=== PATIENT | female | born 1980 | race Two or more races ===

== ENCOUNTER 2017-07-25 14:06 | Emergency (ER) | payer BC ==
[2017-07-25 14:22] VITALS: BP 131/84
--- NOTE | 2017-07-25 15:05 | UC ---
Throat Pain/Nasal Steve HPI - HPI Summary HPI Summary: Patient presents with sinus congestion and feeling of fullness x 1 week. She has tried sudafed last week, and mucinex this week without improvement. She has fullness over the frontal and maxillary sinuses bilaterally worse with palpation. The fullness radiates to the bilateral ears. She denies RUANO or other symptoms. She works in the lab. - History of Current Complaint Chief Complaint: UCGeneralIllness Stated Complaint: SINUS ISSUE Time Seen by Provider: 07/25/17 14:46 Hx Obtained From: Patient Hx Last Menstrual Period: 07/09/17 ?: No Onset/Duration: Sudden Onset Severity: Moderate Pain Intensity: 5 Pain Scale Used: 0-10 Numeric Cough: Other: Associated Signs & Symptoms: Positive: Negative - Epiglottits Risk Factors Epiglottis Risk Factors: Negative - Allergies/Home Medications Allergies/Adverse Reactions: Allergies Allergy/AdvReac Type Severity Reaction Status Date / Time No Known Allergies Allergy Verified 07/25/17 14:22 Home Medications: Home Medications Pseudoephedrine-Guaifenesin [Mucinex D 60-600 mg] 1 tab PO BID PRN 07/25/17 [ History Confirmed 07/25/17] PMH/Surg Hx/FS Hx/Imm Hx Previously Healthy: Yes - Surgical History Surgical History: None - Family History Known Family History: Positive: Unknown - Social History Occupation: Employed Full-time Lives: With Family Alcohol Use: Occasionally Substance Use Type: None Smoking Status (MU): Never Smoked Tobacco Review of Systems Constitutional: Negative Skin: Negative ENT: Sinus Congestion, Sinus Pain/Tenderness Respiratory: Negative Cardiovascular: Negative Motor: Negative Neurovascular: Negative Neurological: Negative Psychological: Negative Is Patient Immunocompromised?: No All Other Systems Reviewed And Are Negative: Yes Physical Exam Triage Information Reviewed: Yes Appearance: Well-Appearing, No Pain Distress, Well-Nourished Vital Signs: Initial Vital Signs Temp 99.4 F 07/25/17 14:17 Pulse 77 07/25/17 14:17 Resp 20 07/25/17 14:17 BP 131/84 07/25/17 14:17 Pulse Ox 96 07/25/17 14:17 Vital Signs Reviewed: Yes Eye Exam: Normal Eyes: Positive: Conjunctiva Clear ENT: Positive: Nasal congestion, Nasal drainage, Other: - frontal and maxillary sinus pressure. Negative: Tonsillar swelling, Tonsillar exudate Dental Exam: Normal Respiratory Exam: Normal Respiratory: Positive: Chest non-tender, Lungs clear Cardiovascular Exam: Normal Musculoskeletal Exam: Normal Musculoskeletal: Positive: Strength Intact Neurological Exam: Normal Psychological Exam: Normal Psychological: Positive: Normal Response To Family Skin Exam: Normal Throat Pain/Nasal Course/Dx - Course Course Of Treatment: Patient evaluated for pressure in the maxillary and frontal sinuses x 2 weeks. She has tenderness and fluid pockets over the maxillary and frontal sinuses on palpation. Given sudafed and augmentin for relief. - Differential Dx/Diagnosis Differential Diagnosis/HQI/PQRI: Pharyngitis, Tonsillitis Provider Diagnoses: Sinusitis Discharge - Discharge Plan Condition: Stable Disposition: HOME Prescriptions: Amoxicillin/Clavulanate TAB* [Augmentin TAB 875*] 875 mg PO BID #14 tab Pseudoephedrine HCl [Sudafed 24 Hour] 240 mg PO DAILY #15 tab Patient Education Materials: Sinusitis (ED), Warm Compress or Soak (ED) Additional Instructions: Follow up with your PCP as needed If you develop worsening symptoms, return to the
== END 2017-07-25 15:07 | disposition home or self-care (01) ==
LOC: UCEAST 14:06
DX: J32.9 Chronic sinusitis, unspecified (principal)
CPT/HCPCS: 99212; G0463

== ENCOUNTER 2017-11-11 13:30 | Emergency (ER) | payer BC ==
[2017-11-11 13:53] VITALS: BP 127/76
--- NOTE | 2017-11-11 15:19 | UC ---
Throat Pain/Nasal Steve HPI - HPI Summary HPI Summary: 2 DAYS OF FEVER TMAX 102, ST, PAIN WITH SWALLOWING, RUANO, FATIGUE, BODY ACHES. NO COUGH, CONGESTION, N/V/D. UTD FLU SHOT. - History of Current Complaint Chief Complaint: UCGeneralIllness Stated Complaint: FEVER Time Seen by Provider: 11/11/17 15:01 Hx Obtained From: Patient Hx Last Menstrual Period: 11/05/17 Onset/Duration: Gradual Onset, Lasting Days, Still Present Pain Intensity: 7 Pain Scale Used: 0-10 Numeric Cough: None Associated Signs & Symptoms: Positive: Fever - Allergies/Home Medications Allergies/Adverse Reactions: Allergies Allergy/AdvReac Type Severity Reaction Status Date / Time No Known Allergies Allergy Verified 07/25/17 14:22 Home Medications: Home Medications Ibuprofen [Advil] 800 mg PO 11/11/17 [History] PMH/Surg Hx/FS Hx/Imm Hx Previously Healthy: Yes - Surgical History Surgical History: Yes Surgery Procedure, Year, and Place: oral - Family History Known Family History: Negative: Hypertension - Social History Alcohol Use: Occasionally Substance Use Type: None Smoking Status (MU): Never Smoked Tobacco Review of Systems Constitutional: Fever, Fatigue ENT: Sore Throat Respiratory: Negative Cardiovascular: Negative Gastrointestinal: Negative Musculoskeletal: Myalgia Neurological: Headache All Other Systems Reviewed And Are Negative: Yes Physical Exam Triage Information Reviewed: Yes Appearance: Well-Appearing, No Pain Distress, Well-Nourished Vital Signs: Initial Vital Signs Temp 99.9 F 11/11/17 13:49 Pulse 103 11/11/17 13:49 Resp 18 11/11/17 13:49 BP 127/76 11/11/17 13:49 Pulse Ox 100 11/11/17 13:49 Vital Signs Reviewed: Yes Eyes: Positive: Conjunctiva Clear ENT: Positive: Hearing grossly normal, Pharyngeal erythema, TMs normal. Negative: Nasal congestion, Tonsillar swelling, Tonsillar exudate Neck: Positive: Supple, Nontender, No Lymphadenopathy Respiratory Exam: Normal Cardiovascular: Positive: Tachycardia Abdomen Description: Positive: Soft Musculoskeletal: Positive: No Edema Neurological: Positive: Alert Psychological: Positive: Age Appropriate Behavior Skin: Negative: rashes Diagnostics - Laboratory Diagnostic Studies Completed/Ordered: RAPID STREP NEGATIVE. FLU SWAB NEGATIVE Throat Pain/Nasal Course/Dx - Differential Dx/Diagnosis Provider Diagnoses: ACUTE VIRAL SYNDROME Discharge - Discharge Plan Condition: Stable Disposition: HOME Patient Education Materials: Viral Syndrome (ED) Referrals: China Barrientos MD [Primary Care Provider] - If Needed Additional Instructions: STREP TEST AND FLU TEST BOTH NEGATIVE. YOUR SYMPTOMS ARE LIKELY VIRALLY MEDIATED AND SHOULD RESOLVE ON THEIR OWN WITH TIME. REST, HYDRATE, OTC MEDS NEEDED. SEEK FOLLOW-UP IF YOU ARE NOT IMPROVING OVER THE NEXT 1-2 WEEKS. VIRAL SYNDROME: The physician has diagnosed a viral infection. Viruses not only cause "colds," but can cause many different symptoms including generalized aching, fever, headache, cough, diarrhea, nausea, vomiting, and fatigue. The treatment, for the most part, is simply relief of symptoms. This means that antibiotics are usually not given. Rest, fluids, pain medications and, occasionally, medication for the specific symptoms that are most bothersome will be prescribed. Contact the physician if you develop any new or unusual symptoms such as severe headache, stiff neck, high fever, chest pain, productive cough, or shortness of breath. You should be rechecked if you don't see marked improvement within seven to 10 days.
== END 2017-11-11 15:18 | disposition home or self-care (01) ==
LOC: UCEAST 13:30
DX: B34.9 Viral infection, unspecified (principal)
CPT/HCPCS: 87502; 87651; 99211; G0463